=== PATIENT | female | born 1990 | race Two or more races ===

== ENCOUNTER 2019-11-04 12:54 | Emergency (ER) | payer SELFPAY ==
[~2019-11-04] VITALS: Ht 172.7 cm; Wt 71.0 kg
[2019-11-04 13:07] VITALS: BP 138/68
== END 2019-11-04 15:23 | disposition home or self-care (01) ==
LOC: ER 12:54
DX: S16.1XXA Strain of muscle, fascia and tendon at neck level, initial encounter (principal); V49.9XXA Car occupant (driver) (passenger) injured in unspecified traffic accident, initial encounter; Y93.9 Activity, unspecified; Y92.410 Unspecified street and highway as the place of occurrence of the external cause
CPT/HCPCS: 99282; Z7610